=== PATIENT | female | born 1950 | race Caucasian/White ===

== ENCOUNTER 2018-10-19 10:53 | Day surgery (SDC) | payer OTHER ==
[~2018-10-19 10:53] MED LIST: SEVOFLURANE 15 MIN
[2018-10-19] MEDS: LIDOCAINE 2% (MDV) 20 ML INJ (13:20)
[2018-10-19] MEDS ORDERED: MIDAZOLAM 1 MG/ML 2 ML INJ (13:50)
[2018-10-19] MEDS ORDERED: FENTAnyl 50 MCG/ML VIAL (13:50)
[2018-10-19] MEDS ORDERED: LIDOCAINE 2% (MDV) 20 ML INJ (14:10)
[2018-10-19] MEDS ORDERED: PROPOFOL 20 ML (14:28)
[2018-10-19] MEDS ORDERED: GLYCOPYRROLATE 0.4 MG INJ (14:28)
[2018-10-19] MEDS ORDERED: LIDOCAINE 2% (SDV) 5 ML INJ (14:28)
[2018-10-19] MEDS ORDERED: SUCCINYLCHOLINE CHLORIDE 100 MG/5 ML SYG IV (14:28)
[2018-10-19] MEDS ORDERED: ROCURONIUM 50 MG INJ (14:28)
[2018-10-19] MEDS ORDERED: NEOSTIGMINE 3 MG/3 ML SYRINGE (14:28)
[2018-10-19] MEDS ORDERED: ONDANSETRON 4 MG INJ (14:29)
[2018-10-19] MEDS ORDERED: MEPERIDINE 25 MG INJ IV (15:00)
[2018-10-19] MEDS ORDERED: FENTAnyl 50 MCG/ML VIAL IV (15:00)
[2018-10-19] MEDS ORDERED: DIPHENHYDRAMINE 50 MG INJ IV (15:00)
[2018-10-19] MEDS ORDERED: LABETALOL HCL 20MG INJ IV (15:00)
[2018-10-19] MEDS ORDERED: METOCLOPRAMIDE 10 MG INJ IV (15:00)
[2018-10-19] MEDS ORDERED: ONDANSETRON 4 MG INJ IV (15:00)
[2018-10-19] MEDS: RACEPINEPHRINE 2.25%(NEB) 0.5 ML AMP HHN (15:06)
[2018-10-19] MEDS: ALBUTEROL 0.083% (NEB) 2.5 MG/3 ML AMP HHN (15:12)
== END 2018-10-19 18:35 | disposition home or self-care (01) ==
LOC: SDS 10:53
DX: C34.32 Malignant neoplasm of lower lobe, left bronchus or lung (principal)
CPT/HCPCS: 31624; 71045; 87070; 87075; 87102; 87116; 88104; 88305; 88307; 94640; 94664

== ENCOUNTER 2018-12-27 14:50 | Emergency (ER) | payer OTHER ==
[2018-12-27 15:20] LABS: ADD MAN DIFF? NO
[2018-12-27 15:27] LABS: BASOPHILS % 0.2 % (0.0-2.0); HEMATOCRIT 39.3 % (37.0-47.0); HEMOGLOBIN 12.8 g/dl (12.0-16.0); LYMPHOCYTES # 0.7 10^3/ul (0.8-2.9); LYMPHOCYTES % 4.3 % (15.0-51.0); MEAN CORPUSCULAR HEMOGLOBIN 29.2 pg (29.0-33.0); MEAN CORPUSCULAR HGB CONC 32.6 g/dl (32.0-37.0); MEAN CORPUSCULAR VOLUME 89.5 fl (82.0-101.0); MEAN PLATELET VOLUME 10.3 fl (7.4-10.4); MONOCYTE # 1.2 10^3/ul (0.3-0.9); MONOCYTES % 7.2 % (0.0-11.0); NEUTROPHIL # 14.9 10^3/ul (1.6-7.5); NEUTROPHILS % 87.8 % (39.0-77.0); PLATELET COUNT 243 10^3/UL (140-415); RED BLOOD COUNT 4.39 10^6/ul (4.20-5.40); RED CELL DISTRIBUTION WIDTH 12.7 % (11.5-14.5)
[2018-12-27] MEDS: VANCOMYCIN 1 GM (PMX) 250 ML IVPB (15:30)
[2018-12-27 15:47] LABS: INR 1.11; PROTIME 14.4 Sec (11.9-14.9); PT RATIO 1.1
[2018-12-27 15:48] LABS: PARTIAL THROMBOPLASTIN TIME 37.2 Sec (23.0-35.0)
[2018-12-27 15:50] LABS: ALANINE AMINOTRANSFERASE 20 IU/L (13-69); ALBUMIN 3.9 g/dl (3.3-4.9); ALBUMIN/GLOBULIN RATIO 0.88; ALKALINE PHOSPHATASE 110 IU/L (42-121); ANION GAP 10 (5-13); ASPARTATE AMINO TRANSFERASE 27 IU/L (15-46); BILIRUBIN,INDIRECT 0.6 mg/dl (0-1.1); BILIRUBIN,TOTAL 0.6 mg/dl (0.2-1.3); BLOOD UREA NITROGEN 15 mg/dl (7-20); CALCIUM 8.8 mg/dl (8.4-10.2); CARBON DIOXIDE 26 mmol/L (21-31); CHLORIDE 96 mmol/L (97-110); CREATININE 1.07 mg/dl (0.44-1.00); Estimated GFR 51 mL/min (>60); GLUCOSE 190 mg/dl (70-220); POTASSIUM 3.9 mmol/L (3.5-5.1); SODIUM 132 mmol/L (135-144); TOTAL PROTEIN 8.3 g/dl (6.1-8.1)
[2018-12-27] MEDS: CEFEPIME 2GM/50 ML (PMX) 50 ML IVPB (15:57)
[2018-12-27 16:01] LABS: TROPONIN-I < 0.012 ng/ml (0.000-0.120)
[2018-12-27 16:40] LABS: ADD UMIC YES; UR ASCORBIC ACID NEGATIVE (NEGATIVE); UR BILIRUBIN (Dip) NEGATIVE (NEGATIVE); UR BLOOD (Dip) 3+ mg/dL (NEGATIVE); UR CLARITY SLIGHTLY CLOUDY (CLEAR); UR COLOR YELLOW (YELLOW); UR GLUCOSE (Dip) NEGATIVE (NEGATIVE); UR KETONES (Dip) TRACE mg/dL (NEGATIVE); UR LEUKOCYTE ESTERASE (Dip) 3+ Leu/ul (NEGATIVE); UR MUCUS FEW /HPF (NONE SEEN); UR NITRITE (Dip) NEGATIVE (NEGATIVE); UR NONSQUAMOUS EPITHELIAL CELL 1 /HPF (NONE SEEN); UR RBC 25 /HPF (0-5); UR SPECIFIC GRAVITY (Dip) 1.021 (1.003-1.030); UR SQUAMOUS EPITHELIAL CELL MODERATE /HPF (FEW); UR TOTAL PROTEIN (Dip) 1+ mg/dl (NEGATIVE); UR UROBILINOGEN (Dip) NEGATIVE (NEGATIVE); UR WBC 20 /HPF (0-5)
== END 2018-12-27 17:09 | disposition home or self-care (01) ==
LOC: E/R 14:50
DX: J18.9 Pneumonia, unspecified organism (principal); R50.9 Fever, unspecified; Z85.118 Personal history of other malignant neoplasm of bronchus and lung
CPT/HCPCS: 36415; 71045; 80053; 81001; 83605; 84484; 85025; 85610; 85730; 87040-91; 87086; 93005; 96374; 99285-25